=== PATIENT | male | born 1980 | race African-American/Black ===

== ENCOUNTER 2023-11-27 18:25 | Emergency (ER) | payer BC, MEDICAID ==
[~2023-11-27] VITALS: Ht 175.3 cm; Wt 75.0 kg
[~2023-11-27 18:25] MED LIST: IBUP-2028 PO
[2023-11-27 18:27] VITALS: O2SAT 99
[2023-11-27] MEDS ORDERED: OXYCODONE HCL/ACETAMINOPHEN 5/325MG TABLET PO ONE (19:15)
[2023-11-27 19:57] VITALS: BP 146/102; PULSE 96; RESP 16; TEMP 36.66960; O2SAT 99
[2023-11-27] MEDS: ACETAMINOPHEN 325MG TABLET PO ONE (20:05)
== END 2023-11-27 21:05 | disposition left against medical advice (07) ==
LOC: ER 18:25
DX: R51.9 Headache, unspecified (principal); Y08.89XA Assault by other specified means, initial encounter; Y93.89 Activity, other specified; Y92.89 Other specified places as the place of occurrence of the external cause; Y99.8 Other external cause status
CPT/HCPCS: 99283